=== PATIENT | female | born 1960 | race American Indian/Alaskan Native ===

== ENCOUNTER 2020-04-18 00:55 | Inpatient (IN) | payer OTHER ==
[2020-04-18] MEDS ORDERED: NITROGLYCERIN 0.4 MG TAB SUBL SL ONE (01:25)
--- NOTE | 2020-04-18 01:25 | Emergency Department Report ---
ED Chest Pain HPI - General Chief Complaint: Chest Pain Stated Complaint: CHEST PAIN PUI?: No Time Seen by Provider: 04/18/20 01:00 Source: patient, EMS Mode of arrival: Stretcher Limitations: No Limitations - History of Present Illness Initial Comments: Patient is a 59-year-old female that presents emergency room with complaints of chest pain. Patient states her chest pain started this morning. Patient states that she went to the local [facility] and was admitted into the chest pain observation area. Patient states that according to the nurse at the observation area she is having a heart attack. Patient states that her EKG changes and they placed her on a heparin drip. Patient states that after the heparin drip her chest pain improved. Patient states her chest pain was a 10 out of 10. Patient states she is received multiple doses of nitro and morphine to help her chest pain. Patient states her chest pain is a 4 out of 10. Patient states the chest pain is in her left chest. Patient states is nonradiating. Patient states the chest pain is better with rest and medications. Patient states the chest pain is worse with exertion. Patient brought to the emergency room by EMS. Report received from EMS. EMS presents all of the EKGs from the [facility]. Patient's 9 PM troponin at [facility] was 3.730, with normal kidney function. Patient denies recent travel. Patient denies recent international travel. Patient denies exposure to the novel coronavirus. Patient denies sick contacts. Patient denies fever and chills. Patient denies cough. Patient denies diarrhea. Patient denies coming in contact with anybody with symptoms of the novel coronavirus. MD Complaint: chest pain -: Sudden Onset: during rest Pain Location: substernal, left chest Pain Radiation: none Severity scale (0 -10): 4 Quality: sharp Consistency: constant Improves With: nitroglycerin, medication-other, rest, other Worsens With: exertion re: nausea. denies: vomting, diaphoresis, dyspnea, sense of impending doom Other Symptoms: denies: cough, fever, syncope, rash, acid taste in mouth, leg swelling, palpitations, burping Treatments Prior to Arrival: aspirin, nitroglycerin, other Aspirin use within the Past 7 Days: (1) Yes - Related Data On Oral Contraceptives: No Allergies Allergy/AdvReac Type Severity Reaction Status Date / Time metronidazole [From Flagyl] Allergy Unknown Verified 04/18/20 01:25 Jqltcvy-Eeu-Hhj Reductase Allergy Unknown Verified 04/18/20 01:25 Inhibitor Sulfa (Sulfonamide Allergy Unknown Verified 04/18/20 01:24 Antibiotics) tramadol Allergy Vomiting Verified 04/18/20 01:25 Heart Score - HEART Score History: Moderately suspicious EKG: Non-specific Age: 45-65 Risk factors: > 3 risk factors or hx of atherosclerotic disease Troponin: > 3x normal limit HEART Score: 7 ED Review of Systems ROS: Stated complaint: CHEST PAIN Other details as noted in HPI Constitutional: denies: chills, fever Eyes: denies: eye pain, eye discharge, vision change ENT: denies: ear pain, throat pain Respiratory: denies: cough, shortness of breath, wheezing Cardiovascular: chest pain. denies: palpitations Endocrine: no symptoms reported Gastrointestinal: nausea. denies: abdominal pain, diarrhea Genitourinary: denies: urgency, dysuria, discharge Musculoskeletal: denies: back pain, joint swelling, arthralgia Skin: denies: rash, lesions Neurological: denies: headache, weakness, paresthesias Psychiatric: denies: anxiety, depression Hematological/Lymphatic: denies: easy bleeding, easy bruising ED Past Medical Hx - Past Medical History Previous Medical History?: Yes Hx Hypertension: Yes Hx Diabetes: Yes - Surgical History Past Surgical History?: No - Family History Family history: no significant - Social History Smoking Status: Never Smoker Substance Use Type: None ED Physical Exam - General Limitations: No Limitations General appearance: alert, in no apparent distress - Head Head exam: Present: atraumatic, normocephalic - Eye Eye exam: Present: normal appearance - ENT ENT exam: Present: mucous membranes moist - Neck Neck exam: Present: normal inspection - Respiratory Respiratory exam: Present: normal lung sounds bilaterally. Absent: respiratory distress - Cardiovascular Cardiovascular Exam: Present: regular rate, normal rhythm. Absent: systolic murmur, diastolic murmur, rubs, gallop - GI/Abdominal GI/Abdominal exam: Present: soft, normal bowel sounds - Extremities Exam Extremities exam: Present: normal inspection - Back Exam Back exam: Present: normal inspection - Neurological Exam Neurological exam: Present: alert, oriented X3 - Psychiatric Psychiatric exam: Present: normal affect, normal mood - Skin Skin exam: Present: warm, dry, intact, normal color. Absent: rash ED Course Vital Signs 04/18/20 04/18/20 01:25 03:10 Temperature 98.7 F Pulse Rate 99 H Respiratory 16 18 Rate Blood Pressure 139/76 O2 Sat by Pulse 100 Oximetry - Reevaluation(s) Reevaluation #1: Patient states her pain is improving. We will continue to monitor patient's vital signs. Patient on heparin drip. Patient will be changed over to our heparin protocol. 04/18/20 01:20 Reevaluation #2: Patient resting comfortably. Patient's vital signs stable. Patient's lung sounds remain clear. 04/18/20 01:55 Reevaluation #3: Patient's chest pain is unchanged. Patient's vital signs stable. 04/18/20 02:55 Reevaluation #4: I discussed all results with patient. I discussed plan of care with patient. Patient agrees with plan of care and admission. Patient to be admitted to the hospitalist service. 04/18/20 03:55 - Consultations Consultation #1: I discussed the case with Dr. Page, interventional cardiology. Dr. Page states this is not a STEMI but recommends keeping the patient on the heparin drip and admitting the patient for an NSTEMI and chest pain work-up. 04/18/20 01:03 Consultation #2: I discussed case with Dr. Jauregui at [facility]. Dr. Jauregui states that we can admit the patient here. 04/18/20 02:16 I discussed Consultation #3: Hospitalist consulted for admission. Hospitalist to admit patient. 04/18/20 03:55 THOMPSON score - Thompson Score Age > 65: (0) No Aspirin use within the Past 7 Days: (1) Yes 3 or more CAD Risk Factors: (1) Yes 2 or more Angina events in past 24 hrs: (1) Yes Known CAD with more than 50% Stenosis: (0) No Elevated Cardiac Markers: (1) Yes ST Deviation Greater than 0.5mm: (0) No THOMPSON Score: 4 ED Medical Decision Making - Lab Data Result diagrams: 04/18/20 01:46 04/18/20 01:46 - EKG Data -: EKG Interpreted by Me EKG shows normal: sinus rhythm, axis, intervals, QRS complexes Rate: normal - EKG Data Interpretation: other (ST inversion noted.) - Radiology Data Radiology results: report reviewed, image reviewed interpreted by me: Chest x-ray: No pneumothorax, no pneumonia, no bone changes, and no foreign body, no acute findings. CHEST 1 VIEW INDICATION: Chest Pain COMPARISON: None FINDINGS: SUPPORT DEVICES: None. HEART / MEDIASTINUM: No significant abnormality. LUNGS / PLEURA: No significant pulmonary or pleural abnormality. No pneumot horax. ADDITIONAL FINDINGS: IMPRESSION: 1. No acute cardiopulmonary disease - Medical Decision Making Patient is a 59-year-old female that presents with complaints of chest pain. Patient was at a [facility] and was being evaluated for chest pain. Patient was having serial EKGs and the staff there believe that the patient was having a STEMI and transferred her to our facility. I reviewed all EKGs and the paperwork from this [facility] clinic and the patient's EKGs were not consistent with a STEMI. I discussed with cardiology immediately after initial evaluation and the grease rack worker agrees that this is not a STEMI. Cardiology recommends to continue the heparin drip and admission for ACS. Patient's labs reviewed from the [facility] and her phone was 3.73. Patient troponin here is 0.6. Patient's EKG is negative for STEMI. Patient's chest x-ray is negative. Patient's labs are essentially unremarkable except for elevated troponin. Heparin protocol was ordered immediately after initial evaluation. I consulted with [facility] and [facility] recommends the patient staying here. Patient admitted to the hospitalist service. - Differential Diagnosis Chest pain, ACS, NSTEMI, STEMI, Critical care attestation.: If time is entered above; I have spent that time in minutes in the direct care of this critically ill patient, excluding procedure time. ED Disposition Clinical Impression: NSTEMI (non-ST elevated myocardial infarction), Elevated troponin, Abnormal EKG Chest pain Qualifiers: Chest pain type: unspecified Qualified Code(s): R07.9 - Chest pain, unspecified Disposition: DC-09 OP ADMIT IP TO THIS HOSP Is pt being admited?: Yes Does the pt Need Aspirin: No Condition: Critical Time of Disposition: 04:02
[2020-04-18] MEDS ORDERED: ONDANSETRON 4 MG/2 ML INJ ONE (01:51)
--- NOTE | 2020-04-18 01:51 | XRay Report ---
CHEST 1 VIEW INDICATION: Chest Pain COMPARISON: None FINDINGS: SUPPORT DEVICES: None. HEART / MEDIASTINUM: No significant abnormality. LUNGS / PLEURA: No significant pulmonary or pleural abnormality. No pneumothorax. ADDITIONAL FINDINGS: IMPRESSION: 1. No acute cardiopulmonary disease Signer Name: Mahesh Tomas MD Signed: 04/18/2020 1:47 AM Workstation Name: [id number]
[2020-04-18] MEDS ORDERED: ONDANSETRON 4 MG/2 ML INJ IV ONE (02:00)
[2020-04-18] MEDS ORDERED: HEPARIN/ 0.45% NACL DRIP 25,000 UNIT/500 ML BAG IV SCH (02:00)
[2020-04-18 02:06] LABS: Basophils # (Auto) 0.1 K/mm3 (0.0-0.1); Basophils % (Auto) 0.6 % (0.0-1.8); Eosinophils # (Auto) 0.1 K/mm3 (0.0-0.4); Eosinophils % (Auto) 0.7 % (0.0-4.3); Hematocrit 42.7 % (30.3-42.9); Hemoglobin 14.6 gm/dl (10.1-14.3); Lymphocytes # (Auto) 3.1 K/mm3 (1.2-5.4); Lymphocytes % (Auto) 25.8 % (13.4-35.0); Mean Corpuscular HGB Conc 34 % (30-34); Mean Corpuscular Volume 93 fl (79-97); Monocytes # (Auto) 0.7 K/mm3 (0.0-0.8); Monocytes % (Auto) 5.6 % (0.0-7.3); Platelet Count 382 K/mm3 (140-440); Red Cell Distribution Width 13.1 % (13.2-15.2)
[2020-04-18 02:18] LABS: INR 1.06 (0.87-1.13)
[2020-04-18 02:27] LABS: Partial Thromboplastin Time 142.1 Sec. (24.2-36.6)
[2020-04-18 02:55] LABS: Alanine Aminotransferase 16 units/L (7-56); Albumin 3.6 g/dL (3.9-5); Blood Urea Nitrogen 7 mg/dL (7-17); Calcium 8.8 mg/dL (8.4-10.2); Hemolysis Index 11
[2020-04-18] MEDS ORDERED: ACETAMINOPHEN 500 MG TAB PO ONE (03:06)
[2020-04-18] MEDS ORDERED: ACETAMINOPHEN 500 MG TAB ONE (03:09)
[2020-04-18 03:21] LABS: BUN/Creatinine Ratio 10
[2020-04-18 03:44] LABS: Chol/HDL Ratio 4.95 %; HDL Cholesterol 42 mg/dL (40-59); LDL Cholesterol,Direct 164 mg/dL (50-130)
[2020-04-18] MEDS ORDERED: DEXTROSE 50% IN WATER (25GM) 50 ML SYRINGE IV PRN (04:07)
[2020-04-18] MEDS ORDERED: ONDANSETRON 4 MG/2 ML INJ IV PRN (04:07)
[2020-04-18] MEDS ORDERED: MAGNESIUM HYDROXIDE (MOM) ORAL LIQD UDC PO PRN (04:07)
[2020-04-18] MEDS ORDERED: ACETAMINOPHEN 325 MG TAB PO PRN ×2 (04:07)
[2020-04-18] MEDS ORDERED: MORPHINE 4 MG/1 ML INJ IV PRN (04:07)
--- NOTE | 2020-04-18 04:24 | History and Physical Report ---
<EVELIN KULKARNI O - Last Filed: 04/18/20 04:52> History of Present Illness Date of examination: 04/18/20 Date of admission: 04/18/2020 Chief complaint: Chest Pain History of present illness: Patient is a 59-year-old female with significant past medical history of hypertension, diabetes mellitus and hyperlipidemia presented to the emergency r oom today from the [facility] with a complaint of chest pain. According to the nurse at the [facility] patient was said to be having a ' heart attack' and was also said to be having some EKG changes (Twave inversions) and therefore placed on a heparin drip. On a scale of 10 pain was said to be 10/10 in severity. Chest pain is left- sided and nonradiating. Pain is made worse by exertion. She received multiple doses of nitro glycerin and morphine. Pain improved to about 4/10 in severity. Work-up in the emergency room today reveals elevated troponin of 0.613. However, troponin is trending down from the initial figures at the [facility] of 3.73 Home Hosp[facility] Rn was consulted by the ER physician. Patient will be admitted for further evaluation. NB: Patient is from [place]. [place] has been promptly informed by the ER physician. Past History Past Medical History: diabetes, hypertension, hyperlipidemia Past Surgical History: Social history: smoking (Current Daily smoker) Family history: no significant family history Medications and Allergies Allergies Allergy/AdvReac Type Severity Reaction Status Date / Time metronidazole [From Flagyl] Allergy Unknown Verified 04/18/20 01:25 Kaprnis-Cqr-Xqg Reductase Allergy Unknown Verified 04/18/20 01:25 Inhibitor Sulfa (Sulfonamide Allergy Unknown Verified 04/18/20 01:24 Antibiotics) tramadol Allergy Vomiting Verified 04/18/20 01:25 Active Meds: Active Medications Heparin Sodium/Sodium Chloride (Heparin/ 0.45% Nacl-25,000 Unit/500 Ml) 25,000 unit in 500 mls @ 20 mls/hr IV TITRATE MADI; Protocol Last Admin: 04/18/20 03:18 Dose: 1,000 units/hr, 20 mls/hr Documented by: Review of Systems Constitutional: no fever, no chills Ears, nose, mouth and throat: no nasal congestion, no sore throat Cardiovascular: chest pain, no palpitations Respiratory: no cough, no shortness of breath Gastrointestinal: no abdominal pain, no nausea, no vomiting, no diarrhea Genitourinary Female: no flank pain, no dysuria, no hematuria Musculoskeletal: no neck pain, no low back pain Integumentary: no rash, no pruritis Neurological: no headaches, no confusion Psychiatric: no anxiety, no depression Exam - Constitutional Vitals: Temp Pulse Resp BP Pulse Ox 98.7 F 92 H 21 166/91 96 04/18/20 01:25 04/18/20 04:00 04/18/20 04:00 04/18/20 04:00 04/18/20 04:00 General appearance: Present: no acute distress, well-nourished - EENT Eyes: Present: PERRL, EOM intact. Absent: scleral icterus ENT: hearing intact, clear oral mucosa, dentition normal - Neck Neck: Present: supple, normal ROM - Respiratory Respiratory effort: normal Respiratory: bilateral: CTA - Cardiovascular Rhythm: regular Heart Sounds: Present: S1 & S2. Absent: gallop, systolic murmur, diastolic murmur, rub - Extremities Extremities: no ischemia, pulses intact, pulses symmetrical, No edema, normal temperature, normal color, Full ROM Peripheral Pulses: within normal limits - Abdominal General gastrointestinal: Present: soft, non-tender, non-distended, normal bowel sounds. Absent: mass - Integumentary Integumentary: Present: clear, warm, dry - Musculoskeletal Musculoskeletal: strength equal bilaterally - Psychiatric Psychiatric: appropriate mood/affect, intact judgment & insight, memory intact, cooperative - Neurologic Neurologic: CNII-XII intact, moves all extremities HEART Score - HEART Score EKG: Non-specific Age: 45-65 Risk factors: > 3 risk factors or hx of atherosclerotic disease Troponin: Troponin T 0.613 ng/mL (0.00-0.029) H* 04/18/20 01:46 Troponin: > 3x normal limit Results - Labs CBC & Chem 7: 04/18/20 01:46 04/18/20 01:46 Labs: Abnormal lab results 04/18/20 04/18/20 04/18/20 Range/Units 01:46 01:46 01:52 WBC 12.0 H (4.5-11.0) K/mm3 Hgb 14.6 H (10.1-14.3) gm/dl RDW 13.1 L (13.2-15.2) % Seg Neutrophils # 8.1 H (1.8-7.7) K/mm3 APTT 142.1 H* (24.2-36.6) Sec. Glucose 265 H (65-100) mg/dL AST 45 H (5-40) units/L Troponin T 0.613 H* (0.00-0.029) ng/mL Albumin 3.6 L (3.9-5) g/dL Cholesterol 208 H (50-199) mg/dL LDL Cholesterol Direct 164 H (50-130) mg/dL Assessment and Plan - Patient Problems (1) Chest pain Current Visit: Yes Status: Acute Qualifiers: Chest pain type: unspecified Qualified Code(s): R07.9 - Chest pain, unspecified Plan to address problem: Patient admitted and placed on telemetry. Will check serial cardiac enzymes. Patient placed on aspirin, sublingual nitroglycerin and IV morphine as needed for chest pain. She is also placed on heparin drip. (2) NSTEMI (non-ST elevated myocardial infarction) Current Visit: Yes Status: Acute Plan to address problem: We will trend serial troponin levels. Patient continued on heparin drip. We await further evaluation by telephonic case manager. (3) DVT prophylaxis Current Visit: Yes Status: Acute Plan to address problem: Patient currently on anticoagulation. (4) Full code status Current Visit: Yes Status: Acute <JUAN YANEZ - Last Filed: 04/18/20 08:20> History of Present Illness Date of admission: 04/18/20 04:15 Medications and Allergies Active Meds: Active Medications Acetaminophen (Tylenol) 650 mg PO Q4H PRN PRN Reason: Pain MILD(1-3)/Fever >100.5/SCHNEIDER Aspirin (Ecotrin) 325 mg PO QDAY MADI Dextrose (D50w (25gm) Syringe) 0 ml IV Q30MIN PRN; Protocol PRN Reason: Hypoglycemia Heparin Sodium/Sodium Chloride (Heparin/ 0.45% Nacl-25,000 Unit/500 Ml) 25,000 unit in 500 mls @ 20 mls/hr IV TITRATE MADI; Protocol Last Admin: 04/18/20 03:18 Dose: 1,000 units/hr, 20 mls/hr Documented by: Insulin Human Lispro (Humalog) 0 unit SUB-Q ACHS MADI; Protocol Magnesium Hydroxide (Milk Of Magnesia) 30 ml PO Q4H PRN PRN Reason: Constipation Morphine Sulfate (Morphine) 2 mg IV Q5MIN PRN PRN Reason: Chest Pain Ondansetron HCl (Zofran) 4 mg IV Q8H PRN PRN Reason: Nausea And Vomiting Sodium Chloride (Sodium Chloride Flush Syringe 10 Ml) 10 ml IV BID MADI Sodium Chloride (Sodium Chloride Flush Syringe 10 Ml) 10 ml IV PRN PRN PRN Reason: LINE FLUSH Exam - Constitutional Vitals: Temp Pulse Resp BP Pulse Ox 98.6 F 102 H 18 150/85 99 04/18/20 07:40 04/18/20 07:40 04/18/20 07:40 04/18/20 07:40 04/18/20 07:40 HEART Score - HEART Score Troponin: Troponin T 0.849 ng/mL (0.00-0.029) H* D 04/18/20 05:40 Results - Labs CBC & Chem 7: 04/18/20 05:40 04/18/20 05:40 Labs: Abnormal lab results 04/18/20 04/18/20 04/18/20 Range/Units 01:46 01:46 01:52 WBC 12.0 H (4.5-11.0) K/mm3 Hgb 14.6 H (10.1-14.3) gm/dl Hct (30.3-42.9) % RDW 13.1 L (13.2-15.2) % Seg Neutrophils # 8.1 H (1.8-7.7) K/mm3 APTT 142.1 H* (24.2-36.6) Sec. Sodium (137-145) mmol/L Chloride (98-107) mmol/L Glucose 265 H (65-100) mg/dL AST 45 H (5-40) units/L Troponin T 0.613 H* (0.00-0.029) ng/mL Albumin 3.6 L (3.9-5) g/dL Cholesterol 208 H (50-199) mg/dL LDL Cholesterol Direct 164 H (50-130) mg/dL 04/18/20 04/18/20 04/18/20 Range/Units 05:40 05:40 05:40 WBC 12.4 H (4.5-11.0) K/mm3 Hgb 14.4 H (10.1-14.3) gm/dl Hct 43.2 H (30.3-42.9) % RDW 13.1 L (13.2-15.2) % Seg Neutrophils # (1.8-7.7) K/mm3 APTT (24.2-36.6) Sec. Sodium 135 L (137-145) mmol/L Chloride 96.1 L (98-107) mmol/L Glucose 343 H (65-100) mg/dL AST (5-40) units/L Troponin T 0.849 H* D (0.00-0.029) ng/mL Albumin (3.9-5) g/dL Cholesterol (50-199) mg/dL LDL Cholesterol Direct (50-130) mg/dL Assessment and Plan - Patient Problems (1) Hyperlipemia Current Visit: Yes Status: Acute (2) Hypertension Current Visit: Yes Status: Acute (3) Diabetes mellitus Current Visit: Yes Status: Acute (4) Elevated troponin Current Visit: Yes Status: Acute
[2020-04-18 06:22] LABS: Basophils # (Auto) 0.1 K/mm3 (0.0-0.1); Basophils % (Auto) 0.9 % (0.0-1.8); Eosinophils % (Auto) 0.2 % (0.0-4.3); Hematocrit 43.2 % (30.3-42.9); Hemoglobin 14.4 gm/dl (10.1-14.3); Lymphocytes # (Auto) 4.2 K/mm3 (1.2-5.4); Lymphocytes % (Auto) 33.6 % (13.4-35.0); Mean Corpuscular HGB Conc 33 % (30-34); Mean Corpuscular Volume 93 fl (79-97); Monocytes # (Auto) 0.5 K/mm3 (0.0-0.8); Monocytes % (Auto) 3.7 % (0.0-7.3); Platelet Count 386 K/mm3 (140-440); Red Blood Count 4.65 M/mm3 (3.65-5.03); Red Cell Distribution Width 13.1 % (13.2-15.2)
[2020-04-18 06:35] LABS: Blood Urea Nitrogen 7 mg/dL (7-17); Calcium 9.1 mg/dL (8.4-10.2); Hemolysis Index 4
[2020-04-18 06:48] LABS: BUN/Creatinine Ratio 10
--- NOTE | 2020-04-18 08:04 | Progress Note ---
<JUAN YANEZ - Last Filed: 04/18/20 08:20> Assessment and Plan Assessment and Plan - Patient Problems (1) Chest pain Current Visit: Yes Status: Acute Qualifiers: Chest pain type: unspecified Qualified Code(s): R07.9 - Chest pain, unspecified Plan to address problem: Patient admitted and placed on telemetry. Will check serial cardiac enzymes. Patient placed on aspirin, sublingual nitroglycerin and IV morphine as needed fo r chest pain. She is also placed on heparin drip. 04/18/20-Chest x-ray -shows no acute finding (2) NSTEMI (non-ST elevated myocardial infarction) Current Visit: Yes Status: Acute Plan to address problem: We will trend serial troponin levels. Patient continued on heparin drip. Director Of Retail Marketing-stress test recommended-The patient refused the stress tx.She stated that she was afarid to have a stress tx because her mother had a stress tx and later Then stress test cancelled. (3) DVT prophylaxis Current Visit: Yes Status: Acute Plan to address problem: Patient currently on anticoagulation. (4) Full code status Current Visit: Yes Status: Acute - Patient Problems (1) Hyperlipemia Current Visit: Yes Status: Acute Plan to address problem: Continue statin (2) Hypertension Current Visit: Yes Status: Acute Plan to address problem: Monitor blood pressure Continue anti-hypertensive Adjust bp med if needed (3) Diabetes mellitus Current Visit: Yes Status: Acute Plan to address problem: Monitor blood sugar with SSI (4) Elevated troponin Current Visit: Yes Status: Acute Plan to address problem: Director Of Retail Marketing consulted-pt refused stress test. Continue heparin drip Objective - Constitutional Vitals: Vital Signs - 12hr 04/18/20 04/18/20 04/18/20 01:17 01:25 01:30 Temperature 98.7 F Pulse Rate 96 H 99 H 95 H Respiratory 20 16 18 Rate Blood Pressure 139/76 150/91 O2 Sat by Pulse 100 100 Oximetry 04/18/20 04/18/20 04/18/20 02:00 02:30 03:00 Temperature Pulse Rate 90 88 97 H Respiratory 19 25 H 20 Rate Blood Pressure 143/86 155/84 151/87 O2 Sat by Pulse 100 98 99 Oximetry 04/18/20 04/18/20 04/18/20 03:10 03:30 04:00 Temperature Pulse Rate 90 92 H Respiratory 18 25 H 21 Rate Blood Pressure 152/83 166/91 O2 Sat by Pulse 97 96 Oximetry 04/18/20 04/18/20 04/18/20 04:10 04:30 04:50 Temperature Pulse Rate 95 H 89 Respiratory 18 11 L 19 Rate Blood Pressure 164/87 166/91 O2 Sat by Pulse 96 100 Oximetry 04/18/20 04/18/20 04/18/20 05:00 05:10 05:33 Temperature 99.1 F Pulse Rate 93 H 93 H 100 H Respiratory 13 24 18 Rate Blood Pressure 162/91 162/91 141/90 O2 Sat by Pulse 96 99 98 Oximetry 04/18/20 04/18/20 04/18/20 05:39 05:56 07:40 Temperature 98.6 F Pulse Rate 95 H 102 H Respiratory 18 18 Rate Blood Pressure 150/85 O2 Sat by Pulse 99 Oximetry - Labs CBC & Chem 7: 04/18/20 05:40 04/18/20 05:40 Labs: Abnormal lab results 04/18/20 04/18/20 04/18/20 Range/Units 01:46 01:46 01:52 WBC 12.0 H (4.5-11.0) K/mm3 Hgb 14.6 H (10.1-14.3) gm/dl Hct (30.3-42.9) % RDW 13.1 L (13.2-15.2) % Seg Neutrophils # 8.1 H (1.8-7.7) K/mm3 APTT 142.1 H* (24.2-36.6) Sec. Sodium (137-145) mmol/L Chloride (98-107) mmol/L Glucose 265 H (65-100) mg/dL AST 45 H (5-40) units/L Troponin T 0.613 H* (0.00-0.029) ng/mL Albumin 3.6 L (3.9-5) g/dL Cholesterol 208 H (50-199) mg/dL LDL Cholesterol Direct 164 H (50-130) mg/dL 04/18/20 04/18/20 04/18/20 Range/Units 05:40 05:40 05:40 WBC 12.4 H (4.5-11.0) K/mm3 Hgb 14.4 H (10.1-14.3) gm/dl Hct 43.2 H (30.3-42.9) % RDW 13.1 L (13.2-15.2) % Seg Neutrophils # (1.8-7.7) K/mm3 APTT (24.2-36.6) Sec. Sodium 135 L (137-145) mmol/L Chloride 96.1 L (98-107) mmol/L Glucose 343 H (65-100) mg/dL AST (5-40) units/L Troponin T 0.849 H* D (0.00-0.029) ng/mL Albumin (3.9-5) g/dL Cholesterol (50-199) mg/dL LDL Cholesterol Direct (50-130) mg/dL HEART Score - HEART Score EKG: Non-specific Age: 45-65 Risk factors: > 3 risk factors or hx of atherosclerotic disease Troponin: Troponin T 0.849 ng/mL (0.00-0.029) H* D 04/18/20 05:40 Troponin: > 3x normal limit <ANA PALMA - Last Filed: 04/18/20 14:22> Assessment and Plan Patient here with NSTEMI Successful PCI with stent placement Cardiology following. Subjective Date of service: 04/18/20 Interval history: Patient seen and examined at bedside. Had stent placement today for NSTEMI. Chest pain improved. Objective - Constitutional Vitals: Vital Signs - 12hr 04/18/20 04/18/20 04/18/20 02:30 03:00 03:10 Temperature Pulse Rate 88 97 H Respiratory 25 H 20 18 Rate Blood Pressure 155/84 151/87 O2 Sat by Pulse 98 99 Oximetry 04/18/20 04/18/20 04/18/20 03:30 04:00 04:10 Temperature Pulse Rate 90 92 H Respiratory 25 H 21 18 Rate Blood Pressure 152/83 166/91 O2 Sat by Pulse 97 96 Oximetry 04/18/20 04/18/20 04/18/20 04:30 04:50 05:00 Temperature Pulse Rate 95 H 89 93 H Respiratory 11 L 19 13 Rate Blood Pressure 164/87 166/91 162/91 O2 Sat by Pulse 96 100 96 Oximetry 09/05/20 09/05/20 09/05/20 05:10 05:33 05:39 Temperature 99.1 F Pulse Rate 93 H 100 H 95 H Respiratory 24 18 Rate Blood Pressure 162/91 141/90 O2 Sat by Pulse 99 98 Oximetry 04/18/20 04/18/20 04/18/20 05:56 07:40 08:13 Temperature 98.6 F Pulse Rate 102 H Respiratory 18 18 18 Rate Blood Pressure 150/85 O2 Sat by Pulse 99 Oximetry 04/18/20 04/18/20 04/18/20 09:41 13:06 13:18 Temperature Pulse Rate 100 H 104 H 103 H Respiratory 18 Rate Blood Pressure 150/85 141/92 116/82 O2 Sat by Pulse 98 Oximetry - Labs CBC & Chem 7: 04/18/20 05:40 04/18/20 05:40 Labs: Abnormal lab results 04/18/20 04/18/20 04/18/20 Range/Units 01:46 01:46 01:52 WBC 12.0 H (4.5-11.0) K/mm3 Hgb 14.6 H (10.1-14.3) gm/dl Hct (30.3-42.9) % RDW 13.1 L (13.2-15.2) % Seg Neutrophils # 8.1 H (1.8-7.7) K/mm3 APTT 142.1 H* (24.2-36.6) Sec. Sodium (137-145) mmol/L Chloride (98-107) mmol/L Glucose 265 H (65-100) mg/dL POC Glucose (70-105) AST 45 H (5-40) units/L Troponin T 0.613 H* (0.00-0.029) ng/mL Albumin 3.6 L (3.9-5) g/dL Cholesterol 208 H (50-199) mg/dL LDL Cholesterol Direct 164 H (50-130) mg/dL 04/18/20 04/18/20 04/18/20 Range/Units 05:40 05:40 05:40 WBC 12.4 H (4.5-11.0) K/mm3 Hgb 14.4 H (10.1-14.3) gm/dl Hct 43.2 H (30.3-42.9) % RDW 13.1 L (13.2-15.2) % Seg Neutrophils # (1.8-7.7) K/mm3 APTT (24.2-36.6) Sec. Sodium 135 L (137-145) mmol/L Chloride 96.1 L (98-107) mmol/L Glucose 343 H (65-100) mg/dL POC Glucose (70-105) AST (5-40) units/L Troponin T 0.849 H* D (0.00-0.029) ng/mL Albumin (3.9-5) g/dL Cholesterol (50-199) mg/dL LDL Cholesterol Direct (50-130) mg/dL 04/18/20 04/18/20 04/18/20 Range/Units 07:58 08:43 13:08 WBC (4.5-11.0) K/mm3 Hgb (10.1-14.3) gm/dl Hct (30.3-42.9) % RDW (13.2-15.2) % Seg Neutrophils # (1.8-7.7) K/mm3 APTT (24.2-36.6) Sec. Sodium (137-145) mmol/L Chloride (98-107) mmol/L Glucose (65-100) mg/dL POC Glucose 309 H 365 H (70-105) AST (5-40) units/L Troponin T 0.621 H* D (0.00-0.029) ng/mL Albumin (3.9-5) g/dL Cholesterol (50-199) mg/dL LDL Cholesterol Direct (50-130) mg/dL HEART Score - HEART Score Troponin: Troponin T 0.621 ng/mL (0.00-0.029) H* D 04/18/20 08:43
--- NOTE | 2020-04-18 08:42 | Consultation ---
History of Present Illness Consult date: 04/18/20 Requesting physician: MAGED ESPINOSA III Consult reason: chest pain, other (NSTEMI) History of present illness: Pt is a 59 y.o. AA female with a hx of HTN, HLD, and DM2 who presented with complaints of left-sided, non-radiating chest tightness since PM. Pt states pain has been constant; however, she notes some relief with NTG. Associated with SOB. No additional cardiac complaints. Trop elevated and trendin g up - 0.631 at admission -> 0.849. ECG reveals SR w/non-specific T wave changes. No acute findings on CXR. No previous cardiac workup available for review. Past History Past Medical History: diabetes, hypertension, hyperlipidemia Past Surgical History: Social history: smoking (current daily smoker). denies: alcohol abuse Family history: CAD, diabetes, hypertension, stroke Medications and Allergies Allergies Allergy/AdvReac Type Severity Reaction Status Date / Time metronidazole [From Flagyl] Allergy Unknown Verified 04/18/20 01:25 [id number]-[id number] Reductase Allergy Unknown Verified 04/18/20 01:25 Inhibitor Sulfa (Sulfonamide Allergy Unknown Verified 04/18/20 01:24 Antibiotics) tramadol Allergy Vomiting Verified 04/18/20 01:25 Active Meds: Active Medications Acetaminophen (Tylenol) 650 mg PO Q4H PRN PRN Reason: Pain MILD(1-3)/Fever >100.5/SCHNEIDER Aspirin (Ecotrin) 325 mg PO QDAY MADI Atorvastatin Calcium (Lipitor) 40 mg PO QHS MADI Carvedilol (Coreg) 6.25 mg PO BID MADI Dextrose (D50w (25gm) Syringe) 0 ml IV Q30MIN PRN; Protocol PRN Reason: Hypoglycemia Heparin Sodium/Sodium Chloride (Heparin/ 0.45% Nacl-25,000 Unit/500 Ml) 25,000 unit in 500 mls @ 20 mls/hr IV TITRATE MADI; Protocol Last Admin: 04/18/20 03:18 Dose: 1,000 units/hr, 20 mls/hr Documented by: Insulin Human Lispro (Humalog) 0 unit SUB-Q ACHS MADI; Protocol Magnesium Hydroxide (Milk Of Magnesia) 30 ml PO Q4H PRN PRN Reason: Constipation Morphine Sulfate (Morphine) 2 mg IV Q5MIN PRN PRN Reason: Chest Pain Ondansetron HCl (Zofran) 4 mg IV Q8H PRN PRN Reason: Nausea And Vomiting Sodium Chloride (Sodium Chloride Flush Syringe 10 Ml) 10 ml IV BID MADI Sodium Chloride (Sodium Chloride Flush Syringe 10 Ml) 10 ml IV PRN PRN PRN Reason: LINE FLUSH Review of Systems Constitutional: no weight loss, no weight gain, no fever, no chills, no sweats, no fatigue Ears, nose, mouth and throat: no nasal congestion, no sore throat Cardiovascular: chest pain, shortness of breath, no orthopnea, no palpitations, no edema, no syncope, no lightheadedness, no dyspnea on exertion, no paroxysmal nocturnal dyspnea, no claudication Respiratory: shortness of breath, no cough, no dyspnea on exertion, no congestion, no wheezing Gastrointestinal: no abdominal pain, no nausea, no vomiting, no diarrhea, no constipation Genitourinary Female: no pelvic pain, no flank pain, no dysuria Musculoskeletal: no neck stiffness, no neck pain, no myalgias Integumentary: no rash, no wounds Neurological: no head injury, no paralysis, no weakness, no parathesias, no num bness, no tingling, no seizures, no syncope, no vertigo, no headaches Endocrine: no cold intolerance, no heat intolerance, no polydipsia, no polyuria Hematologic/Lymphatic: no easy bruising, no easy bleeding Allergic/Immunologic: no urticaria Physical Examination Last Vital Signs Temp 98.6 F 04/18/20 07:40 Pulse 102 H 04/18/20 07:40 Resp 18 04/18/20 08:13 BP 150/85 04/18/20 07:40 Pulse Ox 99 04/18/20 07:40 General appearance: no acute distress HEENT: Positive: EOMI, Normocephaly, Mucus Membranes Moist Neck: Positive: neck supple, trachea midline. Negative: JVD/HJR Cardiac: Positive: Reg Rate and Rhythm, S1/S2. Negative: Audible Murmur Lungs: Positive: clear to auscultation (bilaterally) Neuro: Positive: Grossly Intact Abdomen: Positive: Soft, Active Bowel Sounds. Negative: Tender Skin: Negative: Rash Musculoskeletal: No Fluid Collection, No Pain, Normal Range of Motion Extremities: Present: upper extr. pulses, lower extr. pulses. Absent: edema Results 04/18/20 05:40 04/18/20 05:40 Cardiac Enzymes 04/18/20 Range/Units 01:46 AST 45 H (5-40) units/L Coagulation 04/18/20 Range/Units 01:52 PT 14.0 (12.2-14.9) Sec. INR 1.06 (0.87-1.13) APTT 142.1 H* (24.2-36.6) Sec. Lipids 04/18/20 Range/Units 01:46 Triglycerides 66 (2-149) mg/dL Cholesterol 208 H (50-199) mg/dL HDL Cholesterol 42 (40-59) mg/dL Cholesterol/HDL Ratio 4.95 % CBC 04/18/20 04/18/20 Range/Units 01:46 05:40 WBC 12.0 H 12.4 H (4.5-11.0) K/mm3 RBC 4.60 4.65 (3.65-5.03) M/mm3 Hgb 14.6 H 14.4 H (10.1-14.3) gm/dl Hct 42.7 43.2 H (30.3-42.9) % Plt Count 382 386 (140-440) K/mm3 Lymph # 3.1 4.2 (1.2-5.4) K/mm3 Marshall # 0.7 0.5 (0.0-0.8) K/mm3 Eos # 0.1 0.0 (0.0-0.4) K/mm3 Baso # 0.1 0.1 (0.0-0.1) K/mm3 Comprehensive Metabolic Panel 04/18/20 04/18/20 Range/Units 01:46 05:40 Sodium 140 135 L (137-145) mmol/L Potassium 3.7 3.9 (3.6-5.0) mmol/L Chloride 100.4 96.1 L (98-107) mmol/L Carbon Dioxide 25 25 (22-30) mmol/L BUN 7 7 (7-17) mg/dL Creatinine 0.7 0.7 (0.6-1.2) mg/dL Glucose 265 H 343 H (65-100) mg/dL Calcium 8.8 9.1 (8.4-10.2) mg/dL AST 45 H (5-40) units/L ALT 16 (7-56) units/L Alkaline Phosphatase 117 (35-129) units/L Total Protein 6.5 (6.3-8.2) g/dL Albumin 3.6 L (3.9-5) g/dL - Imaging and Cardiology Echo: pending Cardiac cath: pending EKG: report reviewed, image reviewed EKG interpretations - Telemetry EKG Rhythm: Sinus Rhythm - EKG Sinus rhythms and dysrhythmias: sinus rhythm Repolarization changes or abnormalities: nonspecific abnormality, ST segment, and/or T wave, Q-T interval prolongation Assessment and Plan Plan for [facility] this AM. Hold heparin drip and maintain NPO status. Obtain echo. Daily ECGs for monitoring of QTc. Increase Coreg to 12.5mg BID. Also of note, pt reports h/o statin intolerance. Will d/c Lipitor. Further recommendations to follow per hospital course. Pt seen in conjunction with Dr. Page, who agrees with the assessment and plan of care. - Patient Problems (1) Chest pain Current Visit: Yes Status: Acute Qualifiers: Chest pain type: unspecified Qualified Code(s): R07.9 - Chest pain, unspecified (2) NSTEMI (non-ST elevated myocardial infarction) Current Visit: Yes Status: Acute (3) Prolonged QT interval Current Visit: Yes Status: Acute (4) Hypertension Current Visit: Yes Status: Chronic Qualifiers: Hypertension type: essential hypertension Qualified Code(s): I10 - Essential (primary) hypertension (5) Hyperlipemia Current Visit: Yes Status: Chronic Qualifiers: Hyperlipidemia type: mixed hyperlipidemia Qualified Code(s): E78.2 - Mixed hyperlipidemia (6) Statin intolerance Current Visit: Yes Status: Chronic (7) DM2 (diabetes mellitus, type 2) Current Visit: Yes Status: Chronic
[2020-04-18] MEDS: INSULIN LISPRO 100 UNIT/ML VIAL 3 mL SUB-Q SCH ×4 (09:34→22:16)
[2020-04-18] MEDS ORDERED: carvediloL 12.5 MG TAB PO SCH (10:00)
[2020-04-18] MEDS ORDERED: SODIUM CHLORIDE 0.9% 500 ML 500 ML IV SCH (10:00)
[2020-04-18] MEDS ORDERED: carvediloL 6.25 MG TAB PO SCH ×3 (10:00→18:00)
[2020-04-18] MEDS: HEPARIN 10,000 UNITS/10 ML VIAL ONE ×4 (10:00→11:14)
[2020-04-18] MEDS ORDERED: LIDOCAINE (2%) 20 MG/1 ML VIAL 20 ML MDV INFILTRATI ONE (10:06)
[2020-04-18] MEDS ORDERED: HEPARIN/NS 5000 UNIT/500ML 1,000 ML IR ONE ×2 (10:06→11:27)
[2020-04-18] MEDS ORDERED: SODIUM CHLORIDE 0.9% 500 ML 500 ML ONE (10:13)
[2020-04-18] MEDS ORDERED: NITROGLYCERIN SYRINGE 0 ML ONE (10:24)
[2020-04-18] MEDS ORDERED: ASPIRIN 325 MG TAB ONE (10:30)
[2020-04-18] MEDS: fentaNYL 100 MCG/2 ML INJ ONE ×2 (10:45→10:52)
[2020-04-18] MEDS: MIDAZOLAM 2 MG/2 ML INJ ONE ×2 (10:46→10:52)
[2020-04-18] MEDS: VERAPAMIL 5 MG/2 ML INJ ONE ×2 (10:47→11:00)
[2020-04-18] MEDS ORDERED: TICAGRELOR 90 MG TAB ONE (12:16)
[2020-04-18] MEDS ORDERED: ALUM-MAG HYDROXIDE-SIMETHICONE 200-200-20MG/5ML ORAL LIQD 30 ML ONE (12:16)
[2020-04-18] MEDS ORDERED: carvediloL 6.25 MG TAB PO ONE (13:15)
[2020-04-18] MEDS ORDERED: HYDROcodone/ACETAMINOPHEN 5-325 MG TAB PO PRN (13:38)
[2020-04-18] MEDS ORDERED: traMADol 50 MG TAB PO PRN (13:38)
[2020-04-18] MEDS ORDERED: SODIUM CHLORIDE 0.9% 1000 ML 1,000 ML IV SCH (13:45)
[2020-04-18] MEDS: SODIUM CHLORIDE 0.9% 1000 ML 1,000 ML IV SCH (13:55)
[2020-04-18] MEDS ORDERED: hydrALAZINE 20 MG/1 ML INJ IV PRN (15:56)
--- NOTE | 2020-04-18 16:05 | Cardiac Catherization Report ---
CARDIAC CATHETERIZATION AND CORONARY INTERVENTION INDICATION FOR PROCEDURE: A 59-year-old -Italian female with history of hypertension, hyperlipidemia and diabetes mellitus. She is having chest pain since that is more than 48 hours prior to presentation to ER, the patient was evaluated at [facility] [place] and EKG showed suggestion of acute ST elevations, hence transferred to [facility], in the Emergency Room was noted to have elevated troponins, was treated as non-STEMI. The patient's chest pain improved with treatment; however, because of elevated troponins with history of smoking and underlying coronary risk factors and prolonged chest pain, she was treated as non-STEMI and scheduled for cardiac catheterization for definitive diagnosis and treatment. The patient has family history of coronary artery disease with mother having stenting of coronary arteries done few times. She is willing to proceed with cardiac catheterization and possible intervention. DESCRIPTION OF PROCEDURE: The patient was brought to the catheterization laboratory in a fasting condition. The patient was evaluated for moderate sedation and was felt to be appropriate candidate for moderate sedation and received IV Versed and fentanyl. The patient was prepared in a standard fashion for cardiac catheterization. The right wrist area and forearm was thoroughly cleansed with chlorhexidine solution, sterile drapes were applied. Local anesthesia was given in the right wrist area. Subsequently, right radial artery puncture was made using 21-gauge arterial puncture needle. A 5-[place] slender sheath was introduced. A 5-[place] multipurpose catheter was used to obtain the angiograms of the left coronary artery in multiple views and subsequently left ventriculogram was performed in the WHITLEY projection. This is followed by changing the multipurpose catheter to JR4 catheter and angiograms of the right coronary artery were obtained in ZACK and WHITLEY projection. After obtaining the angiograms, it was decided to proceed with coronary intervention of the LAD and RCA. Following findings were noted on cardiac catheterization. HEMODYNAMICS: 1. Opening aortic pressure 146/77. Left ventricular pressure 146/73. No gradient across the aortic valve. Estimated ejection fraction 55%. However, the apical area was not well visualized on LV gram. 2. Left ventriculogram done in WHITLEY projection using hand injection showed overall left ventricular function to be unremarkable; however, this is a limited study. Mitral regurgitation could not be evaluated because of limited amount of dye injected. 3. Right coronary artery codominant vessel is relatively small caliber vessel measuring 2 mm or so. It arises somewhat anteriorly and superiorly from the right coronary cusp. This shows mid concentric 80% smooth segmental mid lesion. Rest of the vessel without significant disease. 4. Left coronary artery arises normally from left coronary cusp. Left main without significant disease. LAD shows a thrombotic hazy lesion in the mid LAD ranging from 80-90% at its severe stenosis with 50-60% lesion in rest of lesion. Proximal and distal LAD without significant disease. Diagonal branches are without significant disease. Circumflex artery codominant vessel, first obtuse marginal branch shows smooth 50-60% mid lesion. Rest of the circumflex artery without significant disease. 5. Collaterals none. FINAL IMPRESSION: 1. Normal sized left ventricle with normal contractility. Ejection fraction was felt to be normal; however, he is not adequate angiogram for complete evaluation of wall motion abnormalities. 2. Severe thrombotic lesion in the mid left anterior descending, this vessel is large curving around the apex. Similarly, there is a moderate 50-60% lesion in the first obtuse marginal branch. Also RCA codominant vessel, small in caliber, has 80% mid lesion. Considering her clinical picture and symptoms, it was felt that the patient would benefit from intervention of the LAD and possibly RCA. Findings were explained to the patient and she is agreeable with the plan. INTERVENTION OF THE MID LAD/MID RCA: The patient has indwelling 5-[place] slender sheath in place. The patient received IV heparin as anticoagulant. Initially, EBU 3.5 guiding catheter was advanced to the LAD to engage the LCA; however, it was difficult. Hence, JL3.5 guiding catheter was advanced with difficulty. It is to be noted the patient has significant pain in the arm, probably from radial spasm, probably small caliber radial artery. However, the patient insisted that we proceed with radial access. A JL3.5 guiding catheter engaged the left coronary artery. A 0.014 inch Lafferty XT guidewire was advanced under fluoroscopy carefully into the distal LAD. Lesion was dilated with 2.75 x 15 mm balloon, followed by placement of a 3.0 x 22 mm Resolute [place] stent inserted up to 14 atmospheres with good result. Angiographically very good result was obtained. Also, subsequently intravascular ultrasound was performed in a standard fashion. This showed a mild under expansion in the mid part when it was reviewed post-procedure. Otherwise, proximal LAD has moderate disease and stent luminal diameter is equivalent to diameter of LAD proximal to stent . No complications of dissection or perforation noted during the procedure. When satisfactory result was obtained in the LAD, it was decided to proceed with intervention of the RCA lesion. 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 Angiogram showed persistence of lesion 80% in the mid part; however, it is only 2.0 mm caliber vessel. Direct stenting was performed using 2.0 x 12 mm Resolute [place] stent up to 16 atmospheres with good result. The patient tolerated the procedure well except for mild anterior chest pain during the stent expansion. This resolved immediately. No significant EKG changes. Final angiogram showed excellent result with no residual stenosis of the mid RCA. Final angiograms did not show any evidence of complications of dissection or perforation or distal embolization. The patient is chest pain free and hemodynamically stable and regular rhythm at the end of the procedure. It is to be noted the patient was monitored throughout the procedure for any side effects from moderate sedation with pulse oximetry, EKG monitoring and hemodynamic monitoring. The patient tolerated the procedure well. The patient's monitoring of the moderate sedation started at 10:52 a.m. and ended at 12:10 noon. At the end of the procedure, the patient is communicating normally, no focal deficits and breathing normally. The patient was transferred to the room in stable condition. FINAL IMPRESSION: 1. Uncomplicated drug-eluting stent placement of the mid LAD with the help of an intravascular ultrasound. There is mild under expansion of mid stent noted at the end of the procedure when IVUS was reviewed after the procedure. However, this diameter is more or less equals to the diameter of the proximal LAD, which has moderate stenosis proximal to the stent. 2. Uncomplicated drug-eluting stent placement of the mid RCA, which is 2.0 mm. The patient does have moderate disease in the obtuse marginal branch. It was felt this can be treated medically. We will get an echocardiogram for further evaluation of any wall motion abnormalities. The patient's hemodynamics were stable throughout the procedure. The patient was given IV heparin as anticoagulant and ACT was found to be 296 seconds. At the end of the procedure, the patient received 180 mg of Brilinta. Apparently, the patient is intolerant to statins, we will further discuss with the patient about statin management. The patient was transferred to the room in stable condition. JOB# [id number] DANNY/ANA BELL
[2020-04-18] MEDS ORDERED: INSULIN LISPRO 100 UNIT/ML VIAL 3 mL SUB-Q ONE (18:00)
[2020-04-18] MEDS ORDERED: LISINOPRIL 5 MG TAB PO SCH (21:00)
[2020-04-18] MEDS ORDERED: INSULIN NPH, HUMAN 100 UNIT/1 ML SUB-Q ONE (22:00)
[2020-04-18] MEDS: carvediloL 12.5 MG TAB PO SCH (22:11)
[2020-04-18] MEDS: TICAGRELOR 90 MG TAB PO SCH (22:11)
[2020-04-19] MEDS: SODIUM CHLORIDE 0.9% 1000 ML 1,000 ML IV SCH (02:14)
[2020-04-19 05:28] LABS: Basophils # (Auto) 0.1 K/mm3 (0.0-0.1); Basophils % (Auto) 0.5 % (0.0-1.8); Eosinophils # (Auto) 0.1 K/mm3 (0.0-0.4); Eosinophils % (Auto) 0.8 % (0.0-4.3); Hematocrit 37.7 % (30.3-42.9); Hemoglobin 12.9 gm/dl (10.1-14.3); Lymphocytes # (Auto) 3.2 K/mm3 (1.2-5.4); Lymphocytes % (Auto) 29.6 % (13.4-35.0); Mean Corpuscular HGB Conc 34 % (30-34); Mean Corpuscular Volume 93 fl (79-97); Monocytes # (Auto) 0.9 K/mm3 (0.0-0.8); Monocytes % (Auto) 7.9 % (0.0-7.3); Platelet Count 353 K/mm3 (140-440); Red Blood Count 4.07 M/mm3 (3.65-5.03); Red Cell Distribution Width 13.2 % (13.2-15.2)
[2020-04-19 05:36] LABS: INR 1.02 (0.87-1.13)
[2020-04-19 06:11] LABS: Blood Urea Nitrogen 9 mg/dL (7-17); Calcium 8.3 mg/dL (8.4-10.2); Hemolysis Index 4
[2020-04-19 06:12] LABS: BUN/Creatinine Ratio 13
[2020-04-19] MEDS ORDERED: INSULIN NPH, HUMAN 100 UNIT/1 ML SUB-Q SCH (08:00)
[2020-04-19] MEDS: INSULIN LISPRO 100 UNIT/ML VIAL 3 mL SUB-Q SCH ×5 (08:00→14:23)
[2020-04-19] MEDS: TICAGRELOR 90 MG TAB PO SCH (09:00)
[2020-04-19] MEDS: carvediloL 12.5 MG TAB PO SCH (09:01)
[2020-04-19] MEDS ORDERED: ASPIRIN EC 325 MG TAB PO SCH (10:00)
[2020-04-19] MEDS ORDERED: POTASSIUM CHLORIDE ER 20 MEQ TAB PO ONE ×2 (10:00→15:00)
[2020-04-19] MEDS ORDERED: amLODIPine 10 MG TAB PO SCH (10:00)
[2020-04-19] MEDS ORDERED: ASPIRIN 81 MG TAB CHEW PO SCH (10:00)
[2020-04-19 11:42] VITALS: BP 141/80
--- NOTE | 2020-04-19 11:49 | Progress Note ---
Assessment and Plan Echo 04/18/2020 findings noted - EF 40-45%; hypokinetic mid anteroseptal, mid inferoseptal, and apical septal wall segments. D/c home HCTZ. Cont bASA, Brilinta, statin, BB, and ACEi. Will cont Lipitor for now despite reported statin intolerance. Advised pt to f/u with Primary Leasing Agent if any issues. Currently stable cardiac status. Pt may be discharged from a Cardiology perspective. Follow-up with [facility] within 1-2 weeks. Pt seen in conjunction with Dr. Page, who agrees with the assessment and plan of care. - Patient Problems (1) Chest pain Current Visit: Yes Status: Resolved Qualifiers: Chest pain type: unspecified Qualified Code(s): R07.9 - Chest pain, unspecified (2) NSTEMI (non-ST elevated myocardial infarction) Current Visit: Yes Status: Acute (3) CAD (coronary artery disease) Current Visit: Yes Status: Chronic Qualifiers: Coronary Disease-Associated Artery/Lesion type: [place] artery [place] vs. transplanted heart: [place] heart (4) Prolonged QT interval Current Visit: Yes Status: Acute (5) Hypertension Current Visit: Yes Status: Chronic Qualifiers: Hypertension type: essential hypertension Qualified Code(s): I10 - Essential (primary) hypertension (6) Hyperlipemia Current Visit: Yes Status: Chronic Qualifiers: Hyperlipidemia type: mixed hyperlipidemia Qualified Code(s): E78.2 - Mixed hyperlipidemia (7) Statin intolerance Current Visit: Yes Status: Chronic (8) DM2 (diabetes mellitus, type 2) Current Visit: Yes Status: Chronic Subjective Date of service: 04/19/20 Principal diagnosis: NSTEMI Interval history: S/p PCI of mid LAD and mid RCA yesterday - pt tolerated procedure well. Chest pain-free this AM. No additional cardiac complaints. Tele reviewed - SR 80s w/no acute events noted. Objective Last Vital Signs Temp 98.5 F 04/19/20 11:40 Pulse 87 04/19/20 11:40 Resp 18 04/19/20 11:40 BP 141/80 04/19/20 11:40 Pulse Ox 95 04/19/20 11:40 - Physical Examination General: No Apparent Distress HEENT: Positive: EOMI, Normocephaly, Mucus Membranes Moist Neck: Positive: neck supple, trachea midline. Negative: JVD/HJR Cardiac: Positive: Reg Rate and Rhythm, S1/S2. Negative: Audible Murmur Lungs: Positive: clear to auscultation (bilaterally) Neuro: Positive: Grossly Intact Abdomen: Positive: Soft, Active Bowel Sounds. Negative: Tender Skin: Negative: Rash Incision: Cardiac Cath Site (c/d/i - no evidence of bleeding or hematoma) Musculoskeletal: No Fluid Collection, No Pain, Normal Range of Motion Extremities: Present: upper extr. pulses, lower extr. pulses. Absent: edema - Labs and Meds Coagulation 04/19/20 Range/Units 04:05 PT 13.6 (12.2-14.9) Sec. INR 1.02 (0.87-1.13) CBC 04/19/20 Range/Units 04:05 WBC 10.8 (4.5-11.0) K/mm3 RBC 4.07 (3.65-5.03) M/mm3 Hgb 12.9 (10.1-14.3) gm/dl Hct 37.7 (30.3-42.9) % Plt Count 353 (140-440) K/mm3 Lymph # 3.2 (1.2-5.4) K/mm3 [place] # 0.9 H (0.0-0.8) K/mm3 Eos # 0.1 (0.0-0.4) K/mm3 Baso # 0.1 (0.0-0.1) K/mm3 Comprehensive Metabolic Panel 04/18/20 04/18/20 04/19/20 Range/Units 16:11 16:11 04:05 Sodium 137 (137-145) mmol/L Potassium 3.9 3.5 L (3.6-5.0) mmol/L Chloride 99.4 (98-107) mmol/L Carbon Dioxide 23 (22-30) mmol/L BUN 9 (7-17) mg/dL Creatinine 0.7 (0.6-1.2) mg/dL Glucose 453 H 214 H (65-100) mg/dL Calcium 8.3 L (8.4-10.2) mg/dL - Imaging and Cardiology EKG: report reviewed, image reviewed Echo: report reviewed (04/18/2020 - EF 40-45%; hypokinetic mid anteroseptal, mid inferoseptal, and apical septal wall segments) Cardiac cath: report reviewed (04/18/2020 - PCI of mid LAD; PCI of mid RCA; moderate disease of obtuse marginal branch) - Telemetry EKG Rhythm: Sinus Rhythm - EKG Sinus rhythms and dysrhythmias: sinus rhythm Repolarization changes or abnormalities: nonspecific abnormality, ST segment, and/or T wave, Q-T interval prolongation
--- NOTE | 2020-04-19 13:31 | Discharge Summary ---
<JUAN YANEZ - Last Filed: 04/19/20 13:53> Providers - Providers Date of Admission: 04/18/20 04:15 Date of discharge: 04/19/20 Attending physician: FALGUNI ACOSTA MD 04/18/20 Consult to Cardiac Rehabilitation [CONS] Routine Reason For Exam: Phase I 04/18/20 04:05 Consult to Physician [CONS] Routine Comment: Consulting Provider: MYNOR BROCK Physician Instructions: Reason For Exam: chest pain. nstemi 04/18/20 04:08 Consult to Dietitian/Nutrition [CONS] Routine Physician Instructions: Reason For Exam: Reason for Consult: Diet education 04/18/20 13:38 Consult to Cardiac Rehabilitation [CONS] Routine Reason For Exam: Cardiac Rehab Evaluation Primary care physician: CHIEF AIRPORT GUIDE Hospitalization Condition: Stable Hospital course: Patient is a 59-year-old female with significant past medical history of hypertension, diabetes mellitus and hyperlipidemia presented to the emergency room today from the [facility] with a complaint of chest pain. According to the nurse at the [facility] patient was said to be having a ' heart attack' and was also said to be having some EKG changes (Twave inversions) and therefore placed on a heparin drip. On a scale of 10 pain was said to be 10/10 in severity. Chest pain is left- sided and nonradiating. Pain is made worse by exertion. She received multiple doses of nitro glycerin and morphine. Pain improved to about 4/10 in severity. Work-up in the emergency room today reveals elevated troponin of 0.613. However, troponin is trending down from the initial figures at the [facility] of 3.73 Sorority Supervisor was consulted by the ER physician. Patient will be admitted for further evaluation. 04/18/20 -S/p PCI of mid LAD and mid RCA- Pt tolerated procedure well. Patient condition stable and she is discharged -cleared by english language learner teacher. At discharge assessment, patient denied Chest pain, SOB and N/v. Patient on SR 80s w/no acute events noted. Echo 04/18/2020 showed- EF 40-45%; patient is discharged on ASA, Brilinta, statin, BB, and ACEi. and will discontinue HCTZ per english language learner teacher recommendation Patient advised to follow up with [facility] within 1-2 weeks and also to f/u with her PCP Patient advised to return to ED with worsening symptoms Disposition: DC-01 TO HOME OR SELFCARE - Discharge Diagnoses (1) Hyperlipemia Status: Chronic Qualifiers: Hyperlipidemia type: mixed hyperlipidemia Qualified Code(s): E78.2 - Mixed hyperlipidemia Comment: Patient advised to follow up with her PCP Monitor lipid levels every 3 to months advised to continue statin Discussed medication compliance (2) Hypertension Status: Chronic Qualifiers: Hypertension type: essential hypertension Qualified Code(s): I10 - Essential (primary) hypertension Comment: Blood pressure stable Patient advised to Monitor blood pressure at home Continue blood pressure medication as ordered ECHO done -showed- EF 40-45%; (3) Diabetes mellitus Status: Acute Comment: Continue to monitor blood sugar at home F/u with PCP for HGA1c every 3 months (4) Elevated troponin Status: Acute Comment: F/u up with english language learner teacher in 1 to 2 weeks 04/18/20 -S/p PCI of mid LAD and mid RCA- patient denied Chest pain, SOB and N/v at discharge assessment Core Measure Documentation - Palliative Care Palliative Care/ Comfort Measures: Not Applicable - Core Measures Any of the following diagnoses?: none Exam - Constitutional Vitals: Temp Pulse Resp BP Pulse Ox 98.5 F 87 18 141/80 95 04/19/20 11:40 04/19/20 11:40 04/19/20 11:40 04/19/20 11:40 04/19/20 11:40 General appearance: Present: no acute distress - EENT Eyes: Present: PERRL ENT: hearing intact, clear oral mucosa - Neck Neck: Present: supple, normal ROM - Respiratory Respiratory effort: normal Respiratory: bilateral: CTA - Cardiovascular Heart Sounds: Present: S1 & S2. Absent: rub, click - Extremities Extremities: pulses symmetrical, No edema Peripheral Pulses: within normal limits - Abdominal General gastrointestinal: Present: soft, non-tender, non-distended, normal bowel sounds Female genitourinary: Present: normal - Integumentary Integumentary: Present: clear, warm, dry - Musculoskeletal Musculoskeletal: gait normal, strength equal bilaterally - Psychiatric Psychiatric: appropriate mood/affect, intact judgment & insight - Neurologic Neurologic: CNII-XII intact, moves all extremities - Allied Health Allied health notes reviewed: nursing Plan Activity: no restrictions, advance as tolerated Diet: low fat, low cholesterol, low salt, diabetic, low carbohydrate Follow up with: MYNOR BROCK MD [Staff Physician] - 7 Days Forms: [facility] PCI D/C Instructions Prescriptions: amLODIPine 10 mg PO QDAY 30 Days #30 tablet Aspirin [Aspirin BABY CHEW TAB] 81 mg PO QDAY 30 Days #30 tab.chew Ticagrelor [Brilinta] 90 mg PO BID 30 Days #60 tablet carvediloL [Coreg] 12.5 mg PO BID 30 Days #60 tablet lisinopriL [Zestril TAB] 5 mg PO Q24H 30 Days #30 tablet <FALGUNI ACOSTA - Last Filed: 04/20/20 07:44> Providers - Providers Date of Admission: 04/18/20 04:15 Attending physician: FALGUNI ACOSTA MD 04/18/20 Consult to Cardiac Rehabilitation [CONS] Routine Reason For Exam: Phase I 04/18/20 04:05 Consult to Physician [CONS] Routine Comment: Consulting Provider: MYNOR BROCK Physician Instructions: Reason For Exam: chest pain. nstemi 04/18/20 04:08 Consult to Dietitian/Nutrition [CONS] Routine Physician Instructions: Reason For Exam: Reason for Consult: Diet education 04/18/20 13:38 Consult to Cardiac Rehabilitation [CONS] Routine Reason For Exam: Cardiac Rehab Evaluation Primary care physician: CHIEF AIRPORT GUIDE Hospitalization Reason for admission: chest pain Hospital course: I saw and evaluated the patient. I agree with the findings and the plan of care as documented in the Nurse Practitioner's~note, with the following corrections and additions. No statin on discharge due to statin allergy, CERTIFIED GENETIC COUNSELOR advised. Education patient on other cholestrol reducing agents and she will follow with her PCP (1) NSTEMI (non-ST elevated myocardial infarction) Current Visit: Yes Status: Acute Plan to address problem: We will trend serial troponin levels. Patient continued on heparin drip. Sorority Supervisor-stress test recommended-The patient refused the stress tx.She stated that she was afarid to have a stress tx because her mother had a stress tx and later Then stress test cancelled. 2) DVT prophylaxis Current Visit: Yes Status: Acute Plan to address problem: Patient currently on anticoagulation. (3) Hyperlipemia Current Visit: Yes Status: Acute Plan to address problem: Continue statin (4) Hypertension Current Visit: Yes Status: Acute Plan to address problem: Monitor blood pressure Continue anti-hypertensive Adjust bp med if needed (5) Diabetes mellitus Current Visit: Yes Status: Acute Plan to address problem: Monitor blood sugar with SSI (5) Prolonged QT interval Current Visit: Yes Status: Acute (6) Hyperlipemia Current Visit: Yes Status: Chronic Qualifiers: Hyperlipidemia type: mixed hyperlipidemia Qualified Code(s): E78.2 - Mixed hyperlipidemia (7) Statin intolerance Current Visit: Yes Status: Chronic Time spent for discharge: 35 mins Exam - Constitutional Vitals: Temp Pulse Resp BP Pulse Ox 98.5 F 87 18 141/80 95 04/19/20 11:40 04/19/20 11:40 04/19/20 11:40 04/19/20 11:40 04/19/20 11:40
== END 2020-04-19 18:47 | disposition home or self-care (01) | DRG 247 ==
LOC: ED 00:55 → 4A 04:15
PROVIDERS: ADMIT Internal Medicine Geriatric Medicine; ATTEND Internal Medicine
PROC: 4A023N7 Measurement of Cardiac Sampling and Pressure, Left Heart, Percutaneous Approach (ICD-10-PCS; principal; 2020-04-18)
PROC: 027135Z Dilation of Coronary Artery, Two Arteries with Two Drug-eluting Intraluminal Devices, Percutaneous Approach (ICD-10-PCS; 2020-04-18)
PROC: B2111ZZ Fluoroscopy of Multiple Coronary Arteries using Low Osmolar Contrast (ICD-10-PCS; 2020-04-18)
PROC: B2151ZZ Fluoroscopy of Left Heart using Low Osmolar Contrast (ICD-10-PCS; 2020-04-18)
PROC: B240ZZ3 Ultrasonography of Single Coronary Artery, Intravascular (ICD-10-PCS; 2020-04-18)
DX: I21.4 Non-ST elevation (NSTEMI) myocardial infarction (principal); E11.9 Type 2 diabetes mellitus without complications; I10 Essential (primary) hypertension; I25.10 Atherosclerotic heart disease of native coronary artery without angina pectoris; F17.200 Nicotine dependence, unspecified, uncomplicated; E78.2 Mixed hyperlipidemia; Z82.49 Family history of ischemic heart disease and other diseases of the circulatory system; Z83.3 Family history of diabetes mellitus; Z88.2 Allergy status to sulfonamides; Z82.3 Family history of stroke
CPT/HCPCS: 36415; 71045; 80048; 80053; 80061; 82947; 82962; 84132; 84484; 85025; 85520; 85610; 85730; 93005; 93306; 96374; G0378; J1644; J1815; J2250; J2405; J3010; J7030; J7040